=== PATIENT | female | born 1940 | race Caucasian/White ===

== ENCOUNTER 2023-08-20 11:17 | Emergency (ER) | payer MEDICARE, OTHER ==
[2023-08-20] MEDS ORDERED: Sodium Chloride 0.9% 1000 ML 1,000 ML IV SCH (11:45)
--- NOTE | 2023-08-20 12:16 | XRAY ---
Indication: Confusion and weakness. Comparison: None Portable chest demonstrates right lung postsurgical changes with lung volume loss. Remaining heart and lungs unremarkable with incidental calcified granulomas and left carotid calcifications. Bony thorax intact with osteopenia, mild degenerative changes, and moderate dextroscoliosis centered at L2. Impression: Nonacute chest with chronic features.
--- NOTE | 2023-08-20 12:18 | XRAY ---
Indication: Confusion. Weakness. Multiple contiguous images obtained through the head without contrast. Comparison: None Age-appropriate global atrophy and mild periventricular degenerative micro-ischemia bilaterally. 1.5 cm focus remote infarct right periventricular matter. No acute intracranial hemorrhage, abnormal extra-axial fluid collection, or mass effect. Fourth ventricle is midline without hydrocephalus. Bony calvarium intact. Visualized paranasal sinuses and mastoid air cells are clear. 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
[2023-08-20 12:29] LABS: Absolute Neutrophil Ct (ANC) 3.46 x10^3/uL (1.4-6.9); BASOPHIL % 0.9 % (0.0-0.4); Basophil (Absolute #) 0.05 x10^3/uL (0-0.4); Eosinophil % 1.6 % (0.00-5.0); Eosinophil (Absolute #) 0.09 x10^3/uL (0-0.5); Hematocrit 34.1 % (35-47); Hemoglobin 11.5 g/dL (12.0-16.0); IMMATURE GRAN # 0.02 x10^3u/L (0.00-0.03); IMMATURE GRAN % 0.3 % (0.00-0.4); Lymphocyte (Absolute #) 1.84 x10^3/uL (1.0-4.6); Lymphocytes % 31.7 % (24.0-44.0); Mean Cell Volume 98.3 fL (78-100); Mean Corpuscular Hemoglobin 33.1 pg (26-32); Mean Corpuscular Hgb Concent. 33.7 g/dL (32-36); Monocyte (Absolute #) 0.34 x10^3/uL (0.0-1.3); Monocytes % 5.9 % (0.0-12.0); Neutrophil % 59.6 % (36.0-66.0); Platelet Count 270 x10^3/uL (150-450); Red Blood Count 3.47 x10^6/uL (4.1-5.4); Red Cell Distribution Width 13.2 % (11.5-14.0); White Blood Count 5.8 x10^3/uL (4.0-10.5)
[2023-08-20 12:42] LABS: ALBUMIN 4.5 g/dL (3.5-5.0); ANION GAP 11.7 MEQ/L (5-15); BILIRUBIN,TOTAL 0.7 mg/dL (0.2-1.3); Calcium 9.1 mg/dL (8.4-10.2); Creatinine 1 1.03 mg/dL (0.52-1.04); EST GLOMERULAR FILTRATION RATE 54.5 ML/MIN; Potassium 3.9 mmol/L (3.5-5.1); Total Protein 7.2 g/dL (6.3-8.2)
[2023-08-20] MEDS ORDERED: Sodium Chloride 0.9% 1000 ML 1,000 ML ONE (12:58)
[2023-08-20 14:20] LABS: Appearance Clear (Clear); Bacteria None Seen /HPF (None Seen); Bilirubin Negative (Negative); Blood Negative (Negative); Epithelial Cells None Seen /HPF (None Seen); Glucose, Urine Negative (Negative); Hyaline Casts NONE SEEN /LPF (0-2); Ketones Negative (Negative); Leukocyte Esterase Negative (Negative); Nitrite Negative (Negative); Ph 6.5 (4.6-8.0); Protein,Urine Dip Negative (Negative); RBC 0-2 /HPF (0-5); Urobilinogen 0.2 mg/dL (0.2); WBC 0-2 /HPF (0-5)
[2023-08-20 14:22] LABS: ADD URINE CULTURE? NO (NO)
[2023-08-20 14:46] VITALS: BP 185/56; PULSE 68; RESP 21; O2SAT 92
--- NOTE | 2023-08-20 14:56 | ERPHSYRPT ---
- History of Present Illness Time Seen by Provider: 08/20/23 11:29 Source: patient, family Patient Subjective Stated Complaint: pt had breast cancer over 20 years ago and then lumps were discovered about 3 years ago and pt refused to get them biopsied and now the pt has been getting dementia and the grand daughter would like her checked out because she thinks it may have went to her brain Triage Nursing Assessment: Pt brought to the ER by her grand daughter, vitals wnl, denies pain, grand daughter states that pt complains about pain over her entire body and that she fell twice in the past six months and once was off a ladder and injured her hip and she now walks with a limp but has never got checked out, pt has a lump on her lateral side under her left breast, pulses normal, poor historian, pt can't remember which breast she had cancer and surgery in, pt walked to the ER room with a limp, lungs clear Physician History: 83 years old female with history of hypertension, hyperlipidemia, breast cancer status post lumpectomy, chemoradiation 20 years ago, not taking any medications for almost 3 years and refused to have further evaluation of axillary lumps noticed 3 years ago presented with grand daughter with increasing confusion and not acting at her baseline. Granddaughter is concerned that patient probably having brain mets. Patient is not in any distress, denies any chest pain, abdominal pain nausea or vomiting. Denies any extremity injury. Patient has been wandering around looking for her mother who is long time ago. Not a good historian and history is limited. Patient is not in any distress, mild confusion but answering some of the questions appropriately. Lungs bilateral clear to auscultation, essentially nonfocal neuro exam. Abdominal exam is soft nontender with good bowel sounds. She has some left axilla swelling with minimal tenderness. Old scar moraes on the breast with no puckering of skin/erythema etc. I have started her on gentle hydration, work-up showed normal white count, fairly unremarkable chemistries, TSH 102 and low free T3 and free T4. Patient is not willing to stay in the hospital or get IV treatment. I would start her on low-dose of levothyroxine 50 mcg and have her outpatient follow-up. I have obtained CT head which is negative for any acute process but does have remote infarct. Chest x-ray no acute cardiopulmonary findings. Patient does not have UTI. Patient is adamant about not staying in the hospital are doing follow-up with primary care. I have an lengthy discussion with patient and granddaughter who is accompanying her and she is agreeable with taking levothyroxine which she is given and will continue to go home. I will also give her low-dose of anti hypertensive as her blood pressure is in 180s and 190s and patient has history of hypertension. Case management has discussed with granddaughter and family will plan on getting power of document review attorney for her as patient is confused and cannot make her own decisions appropriately and I do agree with it. Discussed signs symptoms of worsening needing return to ER with patient/family seem understanding. Stable for discharge. Allergies/Adverse Reactions: No Known Drug Allergies Allergy (Verified 08/20/23 11:56) Hx Influenza Vaccination/Date Given: No Hx Pneumococcal Vaccination/Date Given: No Travel Risk - International Travel Have you traveled outside of the country in past 3 weeks: No - Coronavirus Screening Are you exhibiting any of the following symptoms?: No Close contact with a COVID-19 positive Pt in past 14-21 Days: No - Vaccine Status Have you recieved a Covid-19 vaccination: No - Review of Systems All Other Systems: Unable due to condition, Unable due to dementia - Past Medical History Pertinent Past Medical History: Yes Neurological History: No Pertinent History ENT History: No Pertinent History Cardiac History: Hypertension Respiratory History: Lung Cancer Endocrine Medical History: Diabetes Type II, Hypothyroidism Musculoskeletal History: No Pertinent History GI Medical History: No Pertinent History History: No Pertinent History Psycho-Social History: Anxiety, Depression Female Reproductive Disorders: Abnormal Uterine Bleeding, Breast Cancer Other Medical History: pt has a blood clotting disorder and was on medication but stopped it suddenly about 3 years ago in 2019 - Past Surgical History Past Surgical History: Yes Neuro Surgical History: No Pertinent History Cardiac: No Pertinent History Respiratory: Lobectomy Gastrointestinal: No Pertinent History, Appendectomy Musculoskeletal: No Pertinent History Female Surgical History: Hysterectomy, Lumpectomy Other Surgical History: cvl port placed and removed - Social History Smoking Status: Former smoker How long have you smoked: 60 years Exposure to second hand smoke: No Drug Use: none Patient Lives Alone: Yes - Nursing Vital Signs Nursing Vital Signs: Initial Vital Signs Pulse Rate 52 L 08/20/23 11:26 Respiratory Rate 12 08/20/23 11:26 Blood Pressure 139/65 08/20/23 11:26 O2 Sat by Pulse Oximetry 98 08/20/23 11:26 Pain Scale Pain Intensity 0 - Physical Exam General Appearance: no apparent distress, alert Eye Exam: PERRL/EOMI, eyes nml inspection Ears, Nose, Throat Exam: normal ENT inspection, TMs normal, pharynx normal, mois t mucous membranes Neck Exam: normal inspection, non-tender, supple, full range of motion Respiratory Exam: normal breath sounds, lungs clear Cardiovascular Exam: regular rate/rhythm, normal heart sounds Gastrointestinal/Abdomen Exam: soft, normal bowel sounds, No tenderness Extremity Exam: normal inspection Neurologic Exam: alert, oriented x 3, cooperative, medical grade shoemaker II-XII nml as tested, nml cerebellar function, nml station & gait, sensation nml, No normal mood/affect, No motor deficits Skin Exam: normal color SpO2 Interpretation: normal SpO2: 92 O2 Delivery: Room Air Ordered Tests: Active Orders 24 hr Category Date Time Status IV Insertion STAT Care 08/20/23 11:38 Completed CHEST 1 VIEW (PORTABLE) Stat Exams 08/20/23 11:39 Completed HEAD WITHOUT CONTRAST [CT] Stat Exams 08/20/23 11:40 Completed BLOOD CULTURE Stat Lab 08/20/23 12:45 Received CBC W DIFF Stat Lab 08/20/23 12:05 Completed CMP Stat Lab 08/20/23 12:05 Completed FREE T3 [FREE TRIODOTHYRONINE] Stat Lab 08/20/23 Completed Lactic Acid Stat Lab 08/20/23 12:09 Completed MAGNESIUM Stat Lab 08/20/23 12:05 Completed TSH [TSH, 3RD Generation] Stat Lab 08/20/23 12:05 Completed UA W/RFX UR CULTURE Stat Lab 08/20/23 14:08 Completed Medication Summary Discontinued Medications Generic Name Dose Route Start Last Admin Trade Name Freq PRN Reason Stop Dose Admin Sodium Chloride 1,000 mls @ 100 mls/hr 08/20/23 11:45 08/20/23 12:59 Sodium Chloride 0.9% 1000 Ml IV 09/19/23 11:44 100 mls/hr .Q10H ALYSSA Administration Sodium Chloride Confirm 08/20/23 12:58 Sodium Chloride 0.9% 1000 Ml Administered 08/20/23 12:59 Dose 1,000 mls @ ud .ROUTE .STK-MED ONE Levothyroxine Sodium 50 mcg 08/21/23 14:34 08/20/23 15:09 Levothyroxine Sodium 50 Mcg Tablet PO 08/21/23 14:35 50 mcg STAT ONE Administration Lab/Rad Data: Laboratory Result Diagrams 08/20/23 12:05 08/20/23 12:05 Laboratory Results 08/20/23 08/20/23 08/20/23 Range/Units Unknown 14:08 12:09 WBC (4.0-10.5) x10^3/uL RBC (4.1-5.4) x10^6/uL Hgb (12.0-16.0) g/dL Hct (35-47) % MCV (78-100) fL MCH (26-32) pg MCHC (32-36) g/dL RDW (11.5-14.0) % Plt Count (150-450) x10^3/uL MPV (7.5-11.0) fL Gran % (36.0-66.0) % Immature Gran % (Auto) (0.00-0.4) % Nucleat RBC Rel Count (0.00-0.1) % Eos # (Auto) (0-0.5) x10^3/uL Immature Gran # (Auto) (0.00-0.03) x10^3u/L Absolute Lymphs (auto) (1.0-4.6) x10^3/uL Absolute Monos (auto) (0.0-1.3) x10^3/uL Absolute Nucleated RBC (0.00-0.01) x10^3u/L Lymphocytes % (24.0-44.0) % Monocytes % (0.0-12.0) % Eosinophils % (0.00-5.0) % Basophils % (0.0-0.4) % Absolute Granulocytes (1.4-6.9) x10^3/uL Basophils # (0-0.4) x10^3/uL Sodium (137-145) mmol/L Potassium (3.5-5.1) mmol/L Chloride (98-107) mmol/L Carbon Dioxide (22-30) mmol/L Anion Gap (5-15) MEQ/L BUN (7-17) mg/dL Creatinine (0.52-1.04) mg/dL Estimated GFR ML/MIN Glucose (74-106) mg/dL Lactic Acid 1.2 (0.4-2.0) Calcium (8.4-10.2) mg/dL Magnesium (1.6-2.3) mg/dL Total Bilirubin (0.2-1.3) mg/dL AST (14-36) U/L ALT (0-35) U/L Alkaline Phosphatase (38-126) U/L Serum Total Protein (6.3-8.2) g/dL Albumin (3.5-5.0) g/dL Free T4 (0.78-2.19) ng/dL Free T3 pg/mL 1.97 L (2.77-5.27) pg/mL TSH 3rd Generation (0.47-4.68) mIU/L Urine Color Yellow (Yellow) Urine Appearance Clear (Clear) Urine pH 6.5 (4.6-8.0) Ur Specific [place] 1.010 (1.005-1.030) Urine Protein Negative (Negative) Urine Glucose (UA) Negative (Negative) mg/dL Urine Ketones Negative (Negative) Urine Blood Negative (Negative) Urine Nitrite Negative (Negative) Urine Bilirubin Negative (Negative) Urine Urobilinogen 0.2 (0.2) mg/dL Ur Leukocyte Esterase Negative (Negative) U Hyaline Cast (Auto) NONE SEEN (0-2) /LPF Urine Microscopic RBC 0-2 (0-5) /HPF Urine Microscopic WBC 0-2 (0-5) /HPF Ur Epithelial Cells None Seen (None Seen) /HPF Urine Bacteria None Seen (None Seen) /HPF Urine Culture Reflexed NO (NO) 08/20/23 08/20/23 08/20/23 Range/Units 12:05 12:05 12:05 WBC (4.0-10.5) x10^3/uL RBC (4.1-5.4) x10^6/uL Hgb (12.0-16.0) g/dL Hct (35-47) % MCV (78-100) fL MCH (26-32) pg MCHC (32-36) g/dL RDW (11.5-14.0) % Plt Count (150-450) x10^3/uL MPV (7.5-11.0) fL Gran % (36.0-66.0) % Immature Gran % (Auto) (0.00-0.4) % Nucleat RBC Rel Count (0.00-0.1) % Eos # (Auto) (0-0.5) x10^3/uL Immature Gran # (Auto) (0.00-0.03) x10^3u/L Absolute Lymphs (auto) (1.0-4.6) x10^3/uL Absolute Monos (auto) (0.0-1.3) x10^3/uL Absolute Nucleated RBC (0.00-0.01) x10^3u/L Lymphocytes % (24.0-44.0) % Monocytes % (0.0-12.0) % Eosinophils % (0.00-5.0) % Basophils % (0.0-0.4) % Absolute Granulocytes (1.4-6.9) x10^3/uL Basophils # (0-0.4) x10^3/uL Sodium 135 L (137-145) mmol/L Potassium 3.9 (3.5-5.1) mmol/L Chloride 100 (98-107) mmol/L Carbon Dioxide 27 (22-30) mmol/L Anion Gap 11.7 (5-15) MEQ/L BUN 17 (7-17) mg/dL Creatinine 1.03 (0.52-1.04) mg/dL Estimated GFR 54.5 ML/MIN Glucose 134 H (74-106) mg/dL Lactic Acid (0.4-2.0) Calcium 9.1 (8.4-10.2) mg/dL Magnesium 2.0 (1.6-2.3) mg/dL Total Bilirubin 0.70 (0.2-1.3) mg/dL AST 34 (14-36) U/L ALT 21 (0-35) U/L Alkaline Phosphatase 55 (38-126) U/L Serum Total Protein 7.2 (6.3-8.2) g/dL Albumin 4.5 (3.5-5.0) g/dL Free T4 0.32 L (0.78-2.19) ng/dL Free T3 pg/mL (2.77-5.27) pg/mL TSH 3rd Generation 102.000 H (0.47-4.68) mIU/L Urine Color (Yellow) Urine Appearance (Clear) Urine pH (4.6-8.0) Ur Specific [place] (1.005-1.030) Urine Protein (Negative) Urine Glucose (UA) (Negative) mg/dL Urine Ketones (Negative) Urine Blood (Negative) Urine Nitrite (Negative) Urine Bilirubin (Negative) Urine Urobilinogen (0.2) mg/dL Ur Leukocyte Esterase (Negative) U Hyaline Cast (Auto) (0-2) /LPF Urine Microscopic RBC (0-5) /HPF Urine Microscopic WBC (0-5) /HPF Ur Epithelial Cells (None Seen) /HPF Urine Bacteria (None Seen) /HPF Urine Culture Reflexed (NO) 08/20/23 Range/Units 12:05 WBC 5.8 (4.0-10.5) x10^3/uL RBC 3.47 L (4.1-5.4) x10^6/uL Hgb 11.5 L (12.0-16.0) g/dL Hct 34.1 L (35-47) % MCV 98.3 (78-100) fL MCH 33.1 H (26-32) pg MCHC 33.7 (32-36) g/dL RDW 13.2 (11.5-14.0) % Plt Count 270 (150-450) x10^3/uL MPV 10.0 (7.5-11.0) fL Gran % 59.6 (36.0-66.0) % Immature Gran % (Auto) 0.3 (0.00-0.4) % Nucleat RBC Rel Count 0.0 (0.00-0.1) % Eos # (Auto) 0.09 (0-0.5) x10^3/uL Immature Gran # (Auto) 0.02 (0.00-0.03) x10^3u/L Absolute Lymphs (auto) 1.84 (1.0-4.6) x10^3/uL Absolute Monos (auto) 0.34 (0.0-1.3) x10^3/uL Absolute Nucleated RBC 0.00 (0.00-0.01) x10^3u/L Lymphocytes % 31.7 (24.0-44.0) % Monocytes % 5.9 (0.0-12.0) % Eosinophils % 1.6 (0.00-5.0) % Basophils % 0.9 (0.0-0.4) % Absolute Granulocytes 3.46 (1.4-6.9) x10^3/uL Basophils # 0.05 (0-0.4) x10^3/uL Sodium (137-145) mmol/L Potassium (3.5-5.1) mmol/L Chloride (98-107) mmol/L Carbon Dioxide (22-30) mmol/L Anion Gap (5-15) MEQ/L BUN (7-17) mg/dL Creatinine (0.52-1.04) mg/dL Estimated GFR ML/MIN Glucose (74-106) mg/dL Lactic Acid (0.4-2.0) Calcium (8.4-10.2) mg/dL Magnesium (1.6-2.3) mg/dL Total Bilirubin (0.2-1.3) mg/dL AST (14-36) U/L ALT (0-35) U/L Alkaline Phosphatase (38-126) U/L Serum Total Protein (6.3-8.2) g/dL Albumin (3.5-5.0) g/dL Free T4 (0.78-2.19) ng/dL Free T3 pg/mL (2.77-5.27) pg/mL TSH 3rd Generation (0.47-4.68) mIU/L Urine Color (Yellow) Urine Appearance (Clear) Urine pH (4.6-8.0) Ur Specific [place] (1.005-1.030) Urine Protein (Negative) Urine Glucose (UA) (Negative) mg/dL Urine Ketones (Negative) Urine Blood (Negative) Urine Nitrite (Negative) Urine Bilirubin (Negative) Urine Urobilinogen (0.2) mg/dL Ur Leukocyte Esterase (Negative) U Hyaline Cast (Auto) (0-2) /LPF Urine Microscopic RBC (0-5) /HPF Urine Microscopic WBC (0-5) /HPF Ur Epithelial Cells (None Seen) /HPF Urine Bacteria (None Seen) /HPF Urine Culture Reflexed (NO) - Progress Progress: improved Progress Note: 08/20/23 14:56 83 years old female with history of hypertension, hyperlipidemia, breast cancer status post lumpectomy, chemoradiation 20 years ago, not taking any medications for almost 3 years and refused to have further evaluation of axillary lumps noticed 3 years ago presented with grand daughter with increasing confusion and not acting at her baseline. Granddaughter is concerned that patient probably having brain mets. Patient is not in any distress, denies any chest pain, abdominal pain nausea or vomiting. Denies any extremity injury. Patient has been wandering around looking for her mother who is long time ago. Not a good historian and history is limited. Patient is not in any distress, mild confusion but answering some of the questions appropriately. Lungs bilateral clear to auscultation, essentially nonfocal neuro exam. Abdominal exam is soft nontender with good bowel sounds. She has some left axilla swelling with minimal tenderness. Old scar moraes on the breast with no puckering of skin/erythema etc. I have started her on gentle hydration, work-up showed normal white count, fairly unremarkable chemistries, TSH 102 and low free T3 and free T4. Patient is not willing to stay in the hospital or get IV treatment. I would start her on low-dose of levothyroxine 50 mcg and have her outpatient follow-up. I have obtained CT head which is negative for any acute process but does have remote infarct. Chest x-ray no acute cardiopulmonary findings. Patient does not have UTI. Patient is adamant about not staying in the hospital are doing follow-up with primary care. I have an lengthy discussion with patient and granddaughter who is accompanying her and she is agreeable with taking levothyroxine which she is given and will continue to go home. I will also give her low-dose of antihypertensive as her blood pressure is in 180s and 190s and patient has hi story of hypertension. Case management has discussed with granddaughter and family will plan on getting power of document review attorney for her as patient is confused and cannot make her own decisions appropriately and I do agree with it as I believe patient has some element of dementia as well contributing to her symptoms.. Discussed signs symptoms of worsening needing return to ER with patient/family seem understanding. Stable for discharge. Counseled pt/family regarding: lab results, diagnosis, need for follow-up, rad results Medical Desision Making - Independent Historian Additional History obtained from: Family, Relative/friend - Risk of complications The pt has a mod risk of morbidity or mortality based on: Need for prescription drug management - Departure Departure Disposition: Home Clinical Impression: Severe hypothyroidism, Intermittent confusion, Uncontrolled hypertension Condition: Stable Critical Care Time: No Referrals: DOCTOR,NO FAMILY [Primary Care Provider] - Follow up with PCP 1 day Instructions: Hypothyroidism (underactive thyroid), High Blood Pressure (DC) Additional Instructions: Monitor your blood pressure regularly, keep a log and follow-up with primary care for reevaluation. Use blood pressure medication if it is more than 140 systolic. Return to ER for worsening symptoms. Prescriptions: Losartan Potassium 25 mg PO DAILY #30 tablet Levothyroxine Sodium 50 Mcg [Synthroid 50 Mcg] 50 mcg PO DAILY #30 tablet
[2023-08-21] MEDS ORDERED: SYNTHROID 50 MCG PO ONE (14:34)
== END 2023-08-20 15:22 | disposition home or self-care (01) ==
LOC: ED 11:17
DX: E03.9 Hypothyroidism, unspecified (principal); R41.0 Disorientation, unspecified; I10 Essential (primary) hypertension; E11.9 Type 2 diabetes mellitus without complications; Z28.310 Unvaccinated for COVID-19
CPT/HCPCS: 36000; 36415; 70450; 71045; 80053; 81001; 83605; 83735; 84439; 84443; 84481; 85025; 87040; 96360; 99284; 99291; A9270-GY

== ENCOUNTER 2023-11-14 14:07 | Emergency (ER) | payer MEDICARE, OTHER ==
[2023-11-14 14:25] VITALS: TEMP 96.4
[2023-11-14 14:39] LABS: Absolute Neutrophil Ct (ANC) 7.09 x10^3/uL (1.4-6.9); BASOPHIL % 0.7 % (0.0-0.4); Basophil (Absolute #) 0.06 x10^3/uL (0-0.4); Eosinophil % 0.1 % (0.00-5.0); Eosinophil (Absolute #) 0.01 x10^3/uL (0-0.5); Hematocrit 34.8 % (35-47); IMMATURE GRAN # 0.04 x10^3u/L (0.00-0.03); IMMATURE GRAN % 0.4 % (0.00-0.4); Lymphocyte (Absolute #) 1.44 x10^3/uL (1.0-4.6); Lymphocytes % 15.6 % (24.0-44.0); Mean Cell Volume 95.1 fL (78-100); Mean Corpuscular Hemoglobin 32.8 pg (26-32); Mean Corpuscular Hgb Concent. 34.5 g/dL (32-36); Mean Platelet Volume 9.4 fL (7.5-11.0); Monocyte (Absolute #) 0.58 x10^3/uL (0.0-1.3); Monocytes % 6.3 % (0.0-12.0); Neutrophil % 76.9 % (36.0-66.0); Platelet Count 269 x10^3/uL (150-450); Red Blood Count 3.66 x10^6/uL (4.1-5.4); Red Cell Distribution Width 12.9 % (11.5-14.0); White Blood Count 9.2 x10^3/uL (4.0-10.5)
[2023-11-14 14:50] LABS: INR 0.96 (0.8-3.0); PROTIME 10.5 SECONDS (9.4-12.5)
--- NOTE | 2023-11-14 14:52 | XRAY ---
Indication: Syncope. Memory loss. Exposure. Comparison: August 20, 2023 Portable chest demonstrates stable right lung post surgical changes with right lung volume loss and right suprahilar pleural thickening. Stable right lung calcified granulomas. No focal infiltrate, consolidation, or large effusion. Heart not enlarged. Bony thorax intact again with osteopenia, degenerative changes, mild scoliosis, and right axilla surgical clips. Impression: Continued nonacute chest with chronic features.
--- NOTE | 2023-11-14 15:10 | XRAY ---
Indication: Syncope. Memory loss. Exposure. Unwitnessed fall. Multiple contiguous axial images obtained through the head without contrast. Comparison: August 20, 2023 Again age-appropriate global atrophy and mild periventricular degenerative micro-ischemia bilaterally. Previous small right periventricular infarct appears smaller/mature. No acute intracranial hemorrhage, abnormal extra-axial fluid collection, or mass effect. Ventricle is midline without hydrocephalus. Bony calvarium intact. Visualized paranasal sinuses and mastoid air cells are clear. Impression: Continued nonacute senile brain with tiny right cerebral remote infarct.
[2023-11-14 15:21] LABS: ALBUMIN 4.8 g/dL (3.5-5.0); ANION GAP 17.6 MEQ/L (5-15); Calcium 9.6 mg/dL (8.4-10.2); Creatinine 1 1.08 mg/dL (0.52-1.04); EST GLOMERULAR FILTRATION RATE 51.3 ML/MIN; Potassium 4.3 mmol/L (3.5-5.1); TSH, 3RD Generation 56.6 mIU/L (0.47-4.68); Total Protein 7.6 g/dL (6.3-8.2)
[2023-11-14 15:23] VITALS: O2SAT 96
--- NOTE | 2023-11-14 15:39 | ERPHSYRPT ---
- History of Present Illness Time Seen by Provider: 11/14/23 14:35 Source: patient, family, EMS Exam Limitations: clinical condition Patient Subjective Stated Complaint: Patient has no complaints. Brought in by ambulance for exposure to the cold. Reported by EMS that patient lives alone but family checks on her daily. Family went to check on her today and found her sitting outside on a concrete slab in her yard. They are unsure how long patient had been outside. Patient unable to state what she was doing outside or how long she had been out there when asked by staff. Triage Nursing Assessment: Patient arrived by ambulance. She is alert/awake but confused. She is alert to name only; confused to time, place, situation. NO SOB. No cough. Face is flushed. She has on a night gown, house coat, a robe, 2 sweaters, socks, and shoes; EMS reports this is what she was found outside wearing. GONZALEZ WNL. She denies any pain. Skin is warm to touch. Physician History: Patient is a 83-year-old white female who is demented but lives alone and was found by her family today on their daily check sitting outside on a concrete s lab in the yard she had several coats and sweaters on could not explain how long she had been there or why she was there. EMS reports that she thinks her is still alive although he has been gone for a year and a half. Records also indicate that she is severely hypothyroid but apparently has not been taking any of her levothyroxine for several weeks. Timing/Duration: today Severity: moderate Allergies/Adverse Reactions: No Known Drug Allergies Allergy (Verified 11/14/23 14:10) Hx Tetanus, Diphtheria Vaccination/Date Given: Yes Hx Influenza Vaccination/Date Given: No Hx Pneumococcal Vaccination/Date Given: No Immunizations Up to Date: Yes Travel Risk - International Travel Have you traveled outside of the country in past 3 weeks: No - Coronavirus Screening Are you exhibiting any of the following symptoms?: No Close contact with a COVID-19 positive Pt in past 14-21 Days: No - Vaccine Status Have you recieved a Covid-19 vaccination: No - Review of Systems All Other Systems: Unable due to condition - Past Medical History Pertinent Past Medical History: Yes Neurological History: No Pertinent History ENT History: No Pertinent History Cardiac History: Hypertension Respiratory History: Lung Cancer Endocrine Medical History: Diabetes Type II, Hypothyroidism Musculoskeletal History: No Pertinent History GI Medical History: No Pertinent History History: No Pertinent History Psycho-Social History: Anxiety, Depression Female Reproductive Disorders: Abnormal Uterine Bleeding, Breast Cancer Other Medical History: pt has a blood clotting disorder and was on medication but stopped it suddenly about 3 years ago in 2019. Patient is confused; poor historian. Most of patient's medical history taken from previous chart. - Past Surgical History Past Surgical History: Yes Neuro Surgical History: No Pertinent History Cardiac: No Pertinent History Respiratory: Lobectomy Gastrointestinal: Appendectomy Musculoskeletal: No Pertinent History Female Surgical History: Hysterectomy, Lumpectomy Other Surgical History: cvl port placed and removed - Social History Smoking Status: Former smoker How long have you smoked: 60 years Exposure to second hand smoke: No Drug Use: none Patient Lives Alone: Yes - Nursing Vital Signs Nursing Vital Signs: Initial Vital Signs Temperature 96.4 F 11/14/23 14:13 Pulse Rate 64 11/14/23 14:13 Respiratory Rate 17 11/14/23 14:13 Blood Pressure 180/78 11/14/23 14:13 O2 Sat by Pulse Oximetry 98 11/14/23 14:13 Pain Scale Pain Intensity 0 - Physical Exam General Appearance: no apparent distress, alert Eye Exam: PERRL/EOMI, eyes nml inspection Ears, Nose, Throat Exam: normal ENT inspection, TMs normal, pharynx normal, moist mucous membranes Neck Exam: normal inspection, non-tender, supple, full range of motion Respiratory Exam: normal breath sounds, lungs clear, No respiratory distress Cardiovascular Exam: regular rate/rhythm, normal heart sounds, normal peripheral pulses Gastrointestinal/Abdomen Exam: soft, normal bowel sounds, No tenderness, No mass Back Exam: normal inspection, normal range of motion, No CVA tenderness, No vertebral tenderness Extremity Exam: normal inspection, normal range of motion, pelvis stable Neurologic Exam: alert, cooperative, normal mood/affect, nml cerebellar function, nml station & gait, sensation nml, disoriented, confusion, No motor deficits Skin Exam: normal color, warm, dry, No rash Lymphatic Exam: No adenopathy SpO2 Interpretation: normal SpO2: 96 O2 Delivery: Room Air - Course Nursing assessment & vital signs reviewed: Yes EKG Interpreted by Me: RATE (63), Sinus Rhythm, NORMAL AXIS, Left Bundle Branch Block, Non-specific ST Changes - Radiology Exams Chest X-ray Interpretation: Reviewed by me - CT Exams Head CT Interpretation: Other (Reviewed by me) Ordered Tests: Active Orders 24 hr Category Date Time Status EKG-ER Only STAT Care 11/14/23 14:14 Active CHEST 1 VIEW (PORTABLE) Stat Exams 11/14/23 14:15 Completed HEAD WITHOUT CONTRAST [CT] Stat Exams 11/14/23 14:18 Completed CBC W DIFF Stat Lab 11/14/23 14:30 Completed CK-Creatinine Phosphokinase Stat Lab 11/14/23 14:30 Completed CMP Stat Lab 11/14/23 14:30 Completed LIPASE Stat Lab 11/14/23 14:30 Completed Lactic Acid Stat Lab 11/14/23 14:30 Completed PROTIME WITH INR Stat Lab 11/14/23 14:30 Completed TROPONIN Q4H Lab 11/14/23 14:30 Completed TROPONIN Q4H Lab 11/14/23 16:30 Completed TROPONIN Q4H Lab 11/14/23 22:15 Ordered TSH, 3RD Generation Stat Lab 11/14/23 14:30 Completed UA W/RFX UR CULTURE Stat Lab 11/14/23 14:15 Ordered Medication Summary Generic Name Dose Route Start Last Admin Trade Name Freq PRN Reason Stop Dose Admin Levothyroxine Sodium 50 mcg 11/15/23 07:00 Levothyroxine Sodium 50 Mcg Tablet PO 12/15/23 06:59 DAILY@0700 [facility] Losartan Potassium 50 mg 11/15/23 10:00 Losartan Potassium 50 Mg Tablet PO 12/15/23 09:59 DAILY [facility] Lab/Rad Data: Laboratory Result Diagrams 11/14/23 14:30 11/14/23 14:30 Laboratory Results 11/14/23 11/14/23 11/14/23 Range/Units 16:30 14:30 14:30 WBC (4.0-10.5) x10^3/uL RBC (4.1-5.4) x10^6/uL Hgb (12.0-16.0) g/dL Hct (35-47) % MCV (78-100) fL MCH (26-32) pg MCHC (32-36) g/dL RDW (11.5-14.0) % Plt Count (150-450) x10^3/uL MPV (7.5-11.0) fL Gran % (36.0-66.0) % Immature Gran % (Auto) (0.00-0.4) % Nucleat RBC Rel Count (0.00-0.1) % Eos # (Auto) (0-0.5) x10^3/uL Immature Gran # (Auto) (0.00-0.03) x10^3u/L Absolute Lymphs (auto) (1.0-4.6) x10^3/uL Absolute Monos (auto) (0.0-1.3) x10^3/uL Absolute Nucleated RBC (0.00-0.01) x10^3u/L Lymphocytes % (24.0-44.0) % Monocytes % (0.0-12.0) % Eosinophils % (0.00-5.0) % Basophils % (0.0-0.4) % Absolute Granulocytes (1.4-6.9) x10^3/uL Basophils # (0-0.4) x10^3/uL PT 10.5 (9.4-12.5) SECONDS INR 0.96 (0.8-3.0) Sodium (137-145) mmol/L Potassium (3.5-5.1) mmol/L Chloride (98-107) mmol/L Carbon Dioxide (22-30) mmol/L Anion Gap (5-15) MEQ/L BUN (7-17) mg/dL Creatinine (0.52-1.04) mg/dL Estimated GFR ML/MIN Glucose (74-106) mg/dL Lactic Acid (0.4-2.0) Calcium (8.4-10.2) mg/dL Total Bilirubin (0.2-1.3) mg/dL AST (14-36) U/L ALT (0-35) U/L Alkaline Phosphatase (38-126) U/L Creatine Kinase (30-135) U/L Troponin I 0.080 H* 0.095 H* (0.000-0.034) ng/mL Serum Total Protein (6.3-8.2) g/dL Albumin (3.5-5.0) g/dL Lipase (23-300) U/L TSH 3rd Generation (0.47-4.68) mIU/L 11/14/23 11/14/23 11/14/23 Range/Units 14:30 14:30 14:30 WBC 9.2 (4.0-10.5) x10^3/uL RBC 3.66 L (4.1-5.4) x10^6/uL Hgb 12.0 (12.0-16.0) g/dL Hct 34.8 L (35-47) % MCV 95.1 (78-100) fL MCH 32.8 H (26-32) pg MCHC 34.5 (32-36) g/dL RDW 12.9 (11.5-14.0) % Plt Count 269 (150-450) x10^3/uL MPV 9.4 (7.5-11.0) fL Gran % 76.9 H (36.0-66.0) % Immature Gran % (Auto) 0.4 (0.00-0.4) % Nucleat RBC Rel Count 0.0 (0.00-0.1) % Eos # (Auto) 0.01 (0-0.5) x10^3/uL Immature Gran # (Auto) 0.04 H (0.00-0.03) x10^3u/L Absolute Lymphs (auto) 1.44 (1.0-4.6) x10^3/uL Absolute Monos (auto) 0.58 (0.0-1.3) x10^3/uL Absolute Nucleated RBC 0.00 (0.00-0.01) x10^3u/L Lymphocytes % 15.6 L (24.0-44.0) % Monocytes % 6.3 (0.0-12.0) % Eosinophils % 0.1 (0.00-5.0) % Basophils % 0.7 (0.0-0.4) % Absolute Granulocytes 7.09 H (1.4-6.9) x10^3/uL Basophils # 0.06 (0-0.4) x10^3/uL PT (9.4-12.5) SECONDS INR (0.8-3.0) Sodium 133 L (137-145) mmol/L Potassium 4.3 (3.5-5.1) mmol/L Chloride 99 (98-107) mmol/L Carbon Dioxide 20 L (22-30) mmol/L Anion Gap 17.6 H (5-15) MEQ/L BUN 30 H (7-17) mg/dL Creatinine 1.08 H (0.52-1.04) mg/dL Estimated GFR 51.3 ML/MIN Glucose 148 H (74-106) mg/dL Lactic Acid 1.6 (0.4-2.0) Calcium 9.6 (8.4-10.2) mg/dL Total Bilirubin 1.00 (0.2-1.3) mg/dL AST 46 H (14-36) U/L ALT 18 (0-35) U/L Alkaline Phosphatase 67 (38-126) U/L Creatine Kinase 1205 H (30-135) U/L Troponin I (0.000-0.034) ng/mL Serum Total Protein 7.6 (6.3-8.2) g/dL Albumin 4.8 (3.5-5.0) g/dL Lipase 197 (23-300) U/L TSH 3rd Generation 56.600 H (0.47-4.68) mIU/L - Progress Progress: improved Medical Desision Making - Diagnostic Testing Diagnostic test were ordered, analyzed, and reviewed by me: Yes Radiological Interpretation: Reviewed by me - Risk of complications Low Risk: Low risk of morbidity from additional dx testing or treatment - Departure Departure Disposition: Home Clinical Impression: Hypertension, Hypothyroidism, Dementia, Severe hypothyroidism Condition: Stable Critical Care Time: No Referrals: DOCTOR,NO FAMILY [Primary Care Provider] - Follow up/PCP as directed Instructions: Hypothyroidism (Underactive Thyroid) (DC)
[2023-11-14 16:48] VITALS: BP 171/71
[2023-11-14 17:17] VITALS: PULSE 79; RESP 22
[2023-11-15] MEDS ORDERED: SYNTHROID 50 MCG PO SCH (07:00)
[2023-11-15] MEDS ORDERED: Cozaar 50 MG PO SCH (10:00)
== END 2023-11-14 18:00 | disposition home or self-care (01) ==
LOC: ED 14:07
DX: F03.90 Unspecified dementia, unspecified severity, without behavioral disturbance, psychotic disturbance, mood disturbance, and anxiety (principal); I10 Essential (primary) hypertension; E03.9 Hypothyroidism, unspecified; E11.9 Type 2 diabetes mellitus without complications; Z28.310 Unvaccinated for COVID-19; D68.9 Coagulation defect, unspecified
CPT/HCPCS: 36415; 70450; 71045; 80053; 82550; 83605; 83690; 84443; 84484; 85025; 85610; 93005; 99284